=== PATIENT | male | born 1975 | race Two or more races ===

== ENCOUNTER 2021-03-12 18:33 | Emergency (ER) | payer MEDICAID, OTHER ==
[2021-03-12] MEDS ORDERED: Ketorolac 60 MG/2 ML SDV IM ONE (19:09)
[2021-03-12] MEDS ORDERED: Acetaminophen 325 MG Tab PO ONE (19:10)
--- NOTE | 2021-03-12 19:55 | EDM.PDOC ---
ED HPI GENERAL MEDICAL PROBLEM - General Chief Complaint: Back Pain or Injury Stated Complaint: BACK PAIN Time Seen by Provider: 03/12/21 18:48 - History of Present Illness INITIAL COMMENTS - FREE TEXT/NARRATIVE: HISTORY AND PHYSICAL: History of present illness: This is a 45-year-old gentleman who presents here today complaining of right lower back pain that he sustained after an injury at work on March 02. Patient reports that he reported to work but they were not able to assist him with sending to [employer]. or the physician for further assistance. Patient reports that his pain is persisted and he was recently released from his work duties and is unable to get any further assistance regarding his back pain. Patient denies any recent fevers, shakes, chills, nausea, vomiting, diarrhea, dysuria, frequency, urgency, hematuria, loss of bowel or bladder function, paresthesias to his perineum/scrotal/rectal region, weakness to his upper or lower extremities. Patient reports that he has pain rating down his right leg in addition to pain to his right lateral lower back. Patient denies any weakness to his upper or lower extremities. Patient denies any difficulty with ambulation except for pain. Review of systems: As per history of present illness and below otherwise all systems reviewed and negative. Past medical history: As per history of present illness and as reviewed below otherwise noncontributory. Surgical history: As per history of present illness and as reviewed below otherwise noncontributory. Social history: No reported history of drug abuse. Family history: As per history of present illness and as reviewed below otherwise noncontributory. Physical exam: This patient was seen and evaluated during the 2019 SARS-CoV-2 novel coronavirus pandemic period. Community viral transmission is ongoing at time of this encounter and the emergency department is operating under pandemic response procedures. Constitutional: Patient is oriented to person, place, and time. Appears well-de veloped and well-nourished. No distress. HEENT: Moist mucous membranes Head: Normocephalic and atraumatic Eyes: Right eye exhibits no discharge. Left eye exhibits no discharge. No scleral icterus Neck: Normal range of motion. No tracheal deviation present. Cardiovascular: Normal rate and regular rhythm. Pulmonary: Effort normal, no respiratory distress. Abdominal: No distention Musculoskeletal: Normal range of motion Neuro: A&Ox3. Cranial nerves II-XII grossly intact, 5/5 strength to bilateral upper and lower extremities, sensation intact to bilateral upper and lower extremities, no nystagmus, PERRLA, EOMI, normal speech, proprioception intact to bilateral lower extremities, normal finger to nose test, gait normal Skin: [place], warm and dry. Psychiatric: Normal mood and affect. Behavior is normal. Judgment and thought content normal. Nursing note and vital signs have been reviewed Diagnostics: Lumbosacral x-rays: No acute fracture dislocation identified as interpreted by Dr. Kaye. Therapeutics: Toradol 60 IM Acetaminophen 650 mg p.o. Assessment and plan: This is a 45-year-old gentleman who presents to the ER today complaining of lower back pain after pushing a couch at work approximately 10 days ago. Patient ports the pain has been persistent. In the ED the patient has been given Toradol and acetaminophen with some improvement in his discomfort. Pat ient be discharged home with ibuprofen and Flexeril to take at home. Patient be instructed to follow-up with his primary care physician and will also be given the phone number for occupational medicine as patient reports that this injury occurred while he was at work. Definitive disposition and diagnosis as appropriate pending reevaluation and review of above. Right Lower Back Pain Score (Numeric/FACES): 9 - Related Data Allergies Allergy/AdvReac Type Severity Reaction Status Date / Time No Known Allergies Allergy Verified 03/12/21 18:56 Home Meds: Home Meds Lisinopril 10 mg PO DAILY 09/30/18 [History] metFORMIN [Glucophage] 1,000 mg PO BIDMEALS 09/30/18 [History] Amitriptyline [Elavil] 10 mg PO DAILY 03/12/21 [History] Cyclobenzaprine [Flexeril] 10 mg PO TID PRN #20 tab 03/12/21 [Rx] Ibuprofen 600 mg PO Q6HR PRN #30 tablet 03/12/21 [Rx] Past Medical History HEENT History: Reports: None Cardiovascular History: Reports: Hypertension Respiratory History: Reports: None Gastrointestinal History: Reports: None Genitourinary History: Reports: None Musculoskeletal History: Reports: None Neurological History: Reports: None Psychiatric History: Reports: Depression Endocrine/Metabolic History: Reports: Diabetes, Type II Hematologic History: Reports: None Immunologic History: Reports: None Oncologic (Cancer) History: Reports: None Dermatologic History: Reports: None - Infectious Disease History Infectious Disease History: Reports: None - Past Surgical History Head Surgeries/Procedures: Reports: None Social & Family History - Family History Family Medical History: No Pertinent Family History - Tobacco Use Tobacco Use Status *Q: Never Tobacco User Second Hand Smoke Exposure: No - Caffeine Use Caffeine Use: Reports: Coffee - Recreational Drug Use Recreational Drug Use: No ED ROS GENERAL - Review of Systems Review Of Systems: See Below ED EXAM, GENERAL - Physical Exam Exam: See Below Course - Vital Signs Last Recorded V/S: Last Vital Signs Temp 97.2 F 03/12/21 18:56 Pulse 89 03/12/21 18:56 Resp 16 03/12/21 18:56 BP 108/65 03/12/21 18:56 Pulse Ox 97 03/12/21 18:56 - Orders/Labs/Meds Meds: Medications Discontinued Medications Generic Name Dose Route Start Last Admin Trade Name Leonardo PRN Reason Stop Dose Admin Acetaminophen 650 mg 03/12/21 19:10 03/12/21 19:34 Acetaminophen 325 Mg Tab PO 03/12/21 19:11 650 mg NOW ONE Administration Ketorolac Tromethamine 60 mg 03/12/21 19:09 03/12/21 19:34 Ketorolac 60 Mg/2 Ml Sdv IM 03/12/21 19:10 60 mg ONETIME ONE Administration Tramadol HCl 50 mg 03/12/21 20:06 03/12/21 20:21 Tramadol 50 Mg Tab PO 03/12/21 20:07 Not Given ONETIME ONE Departure - Departure Time of Disposition: 19:53 Disposition: Home, Self-Care 01 Condition: Good Clinical Impression: Acute low back pain with right-sided sciatica Qualifiers: Back pain laterality: right Qualified Code(s): M54.41 - Lumbago with sciatica, right side - Discharge Information Instructions: Acute Back Pain, Adult, Sciatica, [id number] Referrals: PCP,None [Primary Care Provider] - Forms: ED Department Discharge Additional Instructions: You were seen and evaluated in the ER today secondary to acute low back pain. The x-rays that we obtained revealed no acute abnormalities. Please follow-up with our occupational medicine clinic or your family doctor for further evaluation and treatment of your lower back pain. By your description, your pain is most likely secondary to a muscle spasm or strain from work. [facility] [address] [place] [address] The following information is given to patients seen in the emergency department who are being discharged to home. This information is to outline your options for follow-up care. We provide all patients seen in our emergency department w ith a follow-up referral. The need for follow-up, as well as the timing and circumstances, are variable depending upon the specifics of your emergency department visit. If you don't have a primary care physician on staff, we will provide you with a referral. We always advise you to contact your personal physician following an emergency department visit to inform them of the circumstance of the visit and for follow-up with them and/or the need for any referrals to a consulting specialist. The emergency department will also refer you to a specialist when appropriate. This referral assures that you have the opportunity for follow-up care with a specialist. All of these measure are taken in an effort to provide you with optimal care, which includes your follow-up. Under all circumstances we always encourage you to contact your private physician who remains a resource for coordinating your care. When calling for follow-up care, please make the office aware that this follow-up is from your recent emergency room visit. If for any reason you are refused follow-up, please contact the [facility] Emergency Department at and asked to speak to the emergency department charge nurse. [facility] [address] [place] [id number] [facility] [address] [place] [address] Sepsis Event Note (ED) - Evaluation Sepsis Screening Result: No Definite Risk - Focused Exam Vital Signs: Vital Signs Temp Pulse Resp BP Pulse Ox 03/12/21 18:56 97.2 F 89 16 108/65 97
[2021-03-12] MEDS ORDERED: traMADol 50 MG Tab PO ONE (20:06)
--- NOTE | 2021-03-12 20:31 | CR ---
HISTORY: Low right back pain. COMPARISON: None. FINDINGS: Three views of the lumbar spine. The alignment is within normal. No evidence for acute fracture or dislocation. Mild disc space narrowing and endplate sclerosis at L5-S1. Surgical clips in the left upper quadrant. Dictated by Hanny Enriquez MD @ 03/12/2021 8:30:[address] Hanny Enriquez @ Mar 12 2021 8:30PM
== END 2021-03-12 20:48 | disposition home or self-care (01) ==
LOC: MW.ED 18:33
DX: M54.41 Lumbago with sciatica, right side (principal); E11.9 Type 2 diabetes mellitus without complications; I10 Essential (primary) hypertension; Z79.899 Other long term (current) drug therapy; Z79.84 Long term (current) use of oral hypoglycemic drugs
CPT/HCPCS: 72100; 96372; 99283; A9270; J1885